=== PATIENT | male | born 1950 | race Caucasian/White ===

== ENCOUNTER 2018-08-19 10:15 | Observation (INO) | payer MEDICARE, OTHER ==
[~2018-08-19] VITALS: Ht 167.6 cm; Wt 78.0 kg
[2018-08-19] MEDS ORDERED: SODIUM CHLORIDE 0.9% 1000ML 1,000 ML IV STA (10:20)
[2018-08-19] MEDS ORDERED: PANTOPRAZOLE 40 MG 10ML VIAL IV STA (10:20)
[2018-08-19] MEDS ORDERED: ONDANSETRON HCL INJ 2 MG/ML VIAL IV STA (10:20)
[2018-08-19] MEDS ORDERED: ASPIRIN 81 MG CHEW TAB PO STA (10:20)
[2018-08-19] MEDS ORDERED: NITROGLYCERIN 0.4 MG SUBL SL ONE (10:30)
[2018-08-19] MEDS ORDERED: ASPIRIN 81 MG CHEW TAB PO ONE ×2 (10:30→12:00)
[2018-08-19 10:38] LABS: BASOPHILS % 0.4 % (0.0-1.0); EOSINOPHILS # (AUTO) 0.3 (0.0-0.4); EOSINOPHILS % 2.7 % (0.0-6.0); HEMATOCRIT 52.2 % (38.2-49.6); HEMOGLOBIN 18.3 g/dL (14.0-18.0); LYMPHOCYTES # (AUTO) 1.4 (1.0-3.2); LYMPHOCYTES % 14.8 % (18.0-39.1); MEAN CORPUSCULAR HEMOGLOBIN 31.2 pg (28-32); MEAN CORPUSCULAR HGB CONC 35.1 g/dL (31-35); MEAN CORPUSCULAR VOLUME 89.1 fL (81-99); MONOCYTES # (AUTO) 0.5 (0.2-0.8); MONOCYTES % 5.4 % (4.4-11.3); NEUTROPHILS # (AUTO) 7.2 (2.1-6.9); NEUTROPHILS % 76.1 % (38.7-80.0); PLATELET COUNT 125 x10e3/uL (140-360); RED BLOOD COUNT 5.86 x10e6/uL (4.3-5.7); RED CELL DISTRIBUTION WIDTH 12.9 % (11.7-14.4)
[2018-08-19 10:44] LABS: INR 0.94; PROTHROMBIN TIME 13.4 seconds (11.9-14.5)
[2018-08-19 10:45] LABS: PARTIAL THROMBOPLASTIN TIME 28.1 seconds (23.8-35.5)
[2018-08-19 10:53] LABS: ALANINE AMINOTRANSFERASE 30 IU/L (0-55); ALBUMIN 4.3 g/dL (3.5-5.0); ALBUMIN/GLOBULIN RATIO 1.2 (0.8-2.0); ALKALINE PHOSPHATASE 128 IU/L (40-150); ANION GAP 15.2 mmol/L (8-16); BLOOD UREA NITROGEN 22 mg/dL (7-26); BUN/CREATININE RATIO 24 (6-25); CALCIUM 9.9 mg/dL (8.4-10.2); CARBON DIOXIDE 24 mmol/L (22-29); CHLORIDE 102 mmol/L (98-107); CREATINE KINASE 72 IU/L (30-200); EST GLOMERULAR FILTRATION RATE > 60 ML/MIN (60-); GLUCOSE 198 mg/dL (74-118); LIPASE 22 U/L (8-78); MAGNESIUM 2.2 MG/DL (1.3-2.1); POTASSIUM 4.2 mmol/L (3.5-5.1); SODIUM 137 mmol/L (136-145)
--- NOTE | 2018-08-19 10:59 | Diagnostic Imaging Report ---
PROCEDURE: A single AP view of the chest. COMPARISON: None. INDICATIONS: LEFT CHEST PAIN, RADIATES TO SCAPULA FINDINGS: Lines/tubes: None. Lungs: Moderate lung volumes. Patchy opacity is present at the left lung base. There is no evidence of pneumonia or pulmonary edema. Pleura: There is no pleural effusion or pneumothorax. Apparent linear lucency below the rib at the right lung base is likely artifactual rather than a trace pneumothorax. Heart and mediastinum: The cardiomediastinal silhouette is unremarkable. Bones: No acute bony abnormality. IMPRESSION: No acute radiographic abnormality. Apparent linear lucency at the right lung base is likely artifactual rather than a trace pneumothorax. Mild patchy left basilar opacity, likely atelectasis. Dictated by: SARAH GRAMAJO M.D. on 08/19/2018 at 11:07 Electronically approved by: SARAH GRAMAJO M.D. on 08/19/2018 at 11:07
[2018-08-19 11:07] LABS: CLARITY,URINE SL CLOUDY (CLEAR); COLOR,URINE YELLOW (YELLOW); KETONES,URINE NEGATIVE (NEGATIVE); LEUKOCYTE ESTERASE ,URINE NEGATIVE (NEGATIVE); NITRITE,URINE NEGATIVE (NEGATIVE); PROTEIN,URINE DIPSTICK TRACE (NEGATIVE)
[2018-08-19 11:08] LABS: BILIRUBIN,URINE NEGATIVE (NEGATIVE); URINE UROBILINOGEN 0.2 mg/dL (0.2 - 1)
[2018-08-19 11:27] LABS: EPITHELIAL CELLS,URINE RARE /LPF; RBC,URINE 0-5 /HPF (0-5)
[2018-08-19] MEDS ORDERED: ATORVASTATIN CA20 MG PO (11:49)
[2018-08-19] MEDS ORDERED: GABAPENTIN300 MG PO (11:49)
[2018-08-19] MEDS ORDERED: LOSARTAN POTASS25 MG PO (11:49)
[2018-08-19] MEDS ORDERED: invokana PO (11:49)
[2018-08-19] MEDS ORDERED: CYCLOBENZAPRINE10 MG PO (11:49)
[2018-08-19] MEDS ORDERED: TAMSULOSIN HCL0.4 MG PO (11:49)
[2018-08-19] MEDS ORDERED: SODIUM CHLORIDE FLUSH 10 ML SYR INJ PRN (12:00)
[2018-08-19] MEDS ORDERED: DEXTROSE 50% SYRINGE 50 ML IV PRN (12:00)
[2018-08-19] MEDS ORDERED: ONDANSETRON HCL INJ 2 MG/ML VIAL IV PRN (12:00)
[2018-08-19] MEDS ORDERED: MORPHINE SULFATE 2 MG/ML SYR IV PRN (12:00)
[2018-08-19] MEDS ORDERED: NITROGLYCERIN 0.4 MG SUBL SL PRN (12:00)
[2018-08-19] MEDS: NITROGLYCERIN 2% OINT 1 GM PKT TOP SCH ×2 (12:30→16:55)
[2018-08-19 12:50] VITALS: BP 118/72
[2018-08-19 14:31] VITALS: BP 118/72
[2018-08-19] MEDS: INSULIN REGULAR, HUMAN 100 UNIT/1 ML 3ML VIAL SQ SCH ×2 (17:13→21:00)
[2018-08-19 17:16] VITALS: BP 109/70
[2018-08-19] MEDS ORDERED: INFLUENZA VIRUS VAC SPLIT INJ 0.5 ML SYR IM SCH (18:00)
[2018-08-19 19:56] LABS: CREATINE KINASE 62 IU/L (30-200)
[2018-08-19 20:00] VITALS: BP_SYST 100; BP_SYST 103; BP_DIAS 57; BP_DIAS 59
[2018-08-19 20:05] VITALS: BP 100/57
[2018-08-19] MEDS: ATORVASTATIN 20 MG TAB PO SCH (21:12)
[2018-08-19 21:48] VITALS: BP 108/61
[2018-08-20] VITALS (8 sets, daily range): BP systolic 122–145; BP diastolic 73–87
[2018-08-20] MEDS: NITROGLYCERIN 2% OINT 1 GM PKT TOP SCH ×4 (00:32→17:37)
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
[2018-08-20 06:17] LABS: CREATINE KINASE MB 0.5 ng/mL (0-5.0)
[2018-08-20] MEDS: INSULIN REGULAR, HUMAN 100 UNIT/1 ML 3ML VIAL SQ SCH ×4 (07:30→20:55)
[2018-08-20] MEDS: PANTOPRAZOLE SOD 40 MG TABEC PO SCH (07:30)
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
[2018-08-20] MEDS: ASPIRIN 325 MG TAB EC PO SCH (08:52)
[2018-08-20] MEDS: LOSARTAN POTASSIUM 25 MG TAB PO SCH (08:53)
[2018-08-20] MEDS: TAMSULOSIN HCL 0.4 MG CAP PO SCH (08:53)
--- NOTE | 2018-08-20 16:44 | Progress Note ---
DATE: August 20, 2018 CARDIOLOGY PROGRESS NOTE SUBJECTIVE: Patient reports he had chest pain overnight. He denies any shortness of breath. OBJECTIVE VITAL SIGNS: Temperature 97.5 degrees, pulse 86, respiratory rate 20, blood pressure 122/80, oxygen saturation 94% on 2 liters nasal cannula. GENERAL: Obese gentleman, in no acute distress. Awake and alert. LUNGS: Clear to auscultation bilaterally. No wheezes or crackles. CARDIOVASCULAR: Normal rate, regular rhythm. No murmur. Normal S1 and S2. ABDOMEN: Soft, nontender. EXTREMITIES: No edema. LABS: Troponin 0.003, cholesterol 98. LDL 37, HDL 48, triglyceride 67. TELEMETRY: Normal sinus rhythm. IMPRESSION 1. Chest pain. 2. Moderate coronary artery disease. 3. Diabetes mellitus. 4. Hypertension. 5. Hyperlipidemia. 6. History of hepatitis C virus, status post treatment. RECOMMENDATIONS: No evidence of myocardial infarction, on serial cardiac biomarkers. Nuclear stress test was without evidence of ischemia. Given initial back pain, we will check CTA of the chest to rule out dissection. Continue home cardiac medications otherwise. Further recommendations pending CT result. Thank you for this consult. We will continue to follow. Job#: [id number] TOSIN ALFORD
--- NOTE | 2018-08-20 18:03 | Cardiology Report ---
DATE OF STUDY: August 20, 2018 PROCEDURE: Rest-stress single-isotope SPECT imaging with exercise stress and gated SPECT imaging. INDICATIONS: Chest pain. PROCEDURE: Patient performed treadmill exercise using a Brandon protocol, exercising for 6 minutes 6 seconds to stage 2 and completing an estimated work load of 7 metabolic equivalents (METS). The test was terminated due to fatigue. The rest heart rate was 101 beats per minute at rest and increased to 133 beats per minute at peak exercise, which was 89% of the maximum predicted heart rate. The rest blood pressure was 112/74 and increased to 167/75 mmHg, which is a normal response. The patient did not develop any symptoms during the procedure. The resting electrocardiogram demonstrated normal sinus rhythm. There were no ST-segment changes consistent with myocardial ischemia. Next, myocardial perfusion imaging was performed at rest following the injection of 11 mCi of tetrofosmin. At peak exercise, the patient was injected with 33 mCi of tetrofosmin, and exercise was continued for 1 minute. Gated poststress tomographic imaging was performed. FINDINGS: The overall quality of the study is fair. Left ventricular cavity was noted to be normal size on the rest and stress studies. SPECT images demonstrated homogeneous tracer distribution throughout the myocardium. Gated SPECT imaging reveals normal myocardial thickening and wall motion. The left ventricular ejection fraction was calculated to be greater than 70%. IMPRESSION: Myocardial perfusion imaging is normal. Overall left ventricular systolic function was normal without regional wall motion abnormalities. Job#: [id number]
[2018-08-20] MEDS ORDERED: IOPAMIDOL 370 MG/ML 200 ML INFUS..BTL INJ ONE (18:23)
[2018-08-20] MEDS ORDERED: SODIUM CHLORIDE 0.9% 100 ML 100 ML ONE (18:23)
--- NOTE | 2018-08-20 18:59 | Diagnostic Imaging Report ---
EXAM: CTA of the Thoracic Aorta WITHOUT and WITH Contrast INDICATION: Chest pain. Left-sided pain that radiates to the back. Stabbing pain between the shoulder blades. \S\rule out dissection COMPARISON: None. TECHNIQUE: Multi-detector CT technology was employed. CTA Gated axial imaging of the chest was performed before and after the administration of IV contrast. IV CONTRAST: 100 mL Isovue 370 ORAL CONTRAST: None COMPLICATIONS: None RADIATION DOSE: Total DLP: 881.47 mGy*cm Estimated effective dose: (DLP x 0.015 x size factor) mSv CTDIvol has been reviewed. It is below the limits set by the Radiation Protocol Committee (RPC). For optimization of anatomic evaluation, multiplanar reconstruction, maximum intensity projections, and advanced 3-D off-line postprocessing were performed on a dedicated stand-alone workstation under the direct supervision of the interpreting physician. FINDINGS: Potential study limitations: None. LINES/ TUBES: None. VASCULAR WITH ADVANCED 3-D OFF-LINE POSTPROCESSING: Aortic valve morphology is trileaflet and contains mild calcifications. The thoracic aorta is normal in course, caliber, and contour. There is no acute aortic pathology, such as dissection, intramural hematoma, or contained rupture. Aortic plaques: Mild. The arch vessel branching pattern is conventional. All of the arch branch vessels appear widely patent in their proximal portions. Global Technical Writer dimensions of the thoracic aorta are as follows: 2.1 cm at the aortic annulus 3.5 cm at the sinuses of Valsalva (the sinotubular junction is preserved) 3.2 cm at the mid ascending aorta 3.3 cm at the distal ascending aorta 2.6 cm at the mid transverse arch 2.6 cm at the proximal descending thoracic aorta 2.6 cm at the diaphragmatic hiatus. LUNGS AND AIRWAYS: Calcified granuloma in the right lower lobe. Scarring with atelectasis in the right lower lobe. Left lower lobe atelectasis and mild scarring. Airways are patent. PLEURA: The pleural spaces are clear.. HEART AND MEDIASTINUM: The thyroid gland is normal. No mediastinal, hilar or axillary lymphadenopathy. 0.8 cm prevascular lymph node. 1.2 cm precarinal lymph node (series 2 image 25). Punctate calcification in the subcarinal lymph node. Tiny calcifications in the right hilum, likely tiny calcified right hilar lymph nodes. The main pulmonary artery is normal in size. The cardiac chambers demonstrate normal atrioventricular and ventriculoarterial concordance, and systemic and pulmonary venous return. The cardiac chambers are normal in size. The coronary arteries have normal origins and courses. There are moderate to severe coronary calcifications identified, though this study was not optimized for coronary artery evaluation. There is no pericardial effusion. LIMITED ABDOMEN: The limited images of the upper abdomen reveal no abnormalities of the visualized organs. 1.3 cm cyst in the superior pole of left kidney. BONES: Unremarkable. IMPRESSION: 1. Unremarkable thoracic aorta. There is no acute aortic pathology. 2. Old granulomatous disease. Signed by: Dr. Roe Goodman M.D. on 08/20/2018 6:56 PM
[2018-08-20] MEDS ORDERED: ACETAMINOPHEN 325 MG TAB PO PRN (20:30)
[2018-08-20] MEDS: ATORVASTATIN 20 MG TAB PO SCH (20:55)
[2018-08-21] VITALS: BP_SYST 126; BP_SYST 127; BP_DIAS 67; BP_DIAS 75
[2018-08-21 07:00] VITALS: BP_SYST 125; BP_SYST 128; BP_SYST 131; BP_DIAS 81; BP_DIAS 84; BP_DIAS 86
[2018-08-21] MEDS: INSULIN REGULAR, HUMAN 100 UNIT/1 ML 3ML VIAL SQ SCH (07:30)
[2018-08-21] MEDS: PANTOPRAZOLE SOD 40 MG TABEC PO SCH (07:30)
[2018-08-21] MEDS: TAMSULOSIN HCL 0.4 MG CAP PO SCH (09:00)
[2018-08-21] MEDS: ASPIRIN 325 MG TAB EC PO SCH (09:00)
[2018-08-21] MEDS: LOSARTAN POTASSIUM 25 MG TAB PO SCH (09:01)
--- OUTSIDE RECORDS SUMMARY | 2018-09-01 09:45 | XMS REPORT ---
Author Author [facility] Address Unknown Phone Unavailable Care Team Providers Care Lime Puller Name Role Phone Brittny MIRELES Unavailable Unavailable Problems This patient has no known problems. Allergies, Adverse Reactions, Alerts This patient has no known allergies or adverse reactions. Medications This patient has no known medications. Results Test Description Test Time Test Comments Text Results Atomic Results Result Comments CHEST SINGLE (PORTABLE) 2018-08-19 11:07:00 [facility] [address] [id number] Patient Name: MICHELLE BLACKWOOD MR #: [id number] : 1950 Age/Sex: 68/M Req #: [id number] Adm Physician: Ordered by: CHRIS BLACKWOOD HUMAN RESOURCES OPERATIONS MANAGER Report #: [id number] Location: ER Room/Bed: Procedure: [id number] DX/CHEST SINGLE (PORTABLE) Exam Date: 08/19/18 Exam Time: 1040 REPORT STATUS: Signed PROCEDURE: A single AP view of the chest. COMPARISON: None. INDICATIONS: LEFT CHEST PAIN, RADIATES TO SCAPULA FINDINGS: Lines/tubes: None. Lungs: Moderate lung volumes. Patchy opacity is present at the left lung base. There is no evidence of pneumonia or pulmonary edema. Pleura: There is no pleural effusion or pneumothorax. Apparent linear lucency below the rib at the right lung base is likely artifactual rather than a trace pneumothorax. Heart and mediastinum: The cardiomediastinal silhouette is unremarkable. Bones: No acute bony abnormality. IMPRESSION: No acute radiographic abnormality. Apparent linear lucency at the right lung base is likely artifactual rather than a trace pneumothorax. Mild patchy left basilar opacity, likely atelectasis. Dictated by: SARAH GRAMAJO M.D. on 08/19/2018 at 11:07 Electronically approved by: SARAH GRAMAJO M.D. on 08/19/2018 at 11:07 Dictated By: SARAH GRAMAJO MD 110 Transcribed By: JAIDEN on 08/19/181106 COPY TO: CHRIS BLACKWOOD NP
[2018-10-06] MEDS ORDERED: ONGLYZA5 MG PO (10:08)
[2018-10-06] MEDS ORDERED: MULTI-VITAMIN1 EACH PO (10:09)
[2018-10-06] MEDS ORDERED: METFORMIN HCL500 MG PO (10:09)
[2018-10-06] MEDS ORDERED: ASPIR 8181 MG PO (10:09)
--- NOTE | 2018-10-15 02:11 | Discharge Summary ---
CHIEF COMPLAINT: Chest pain. FINAL DIAGNOSES 1. Chest pain. 2. Diabetes. 3. Hypertension. PROCEDURES: Stress test. DISPOSITION: Home. A 68-year-old male, history of multiple medical problems, presents to the ER of the facility with complaint of chest pain. He states that it began the night before admission while he was eating dinner and left-sided chest pain radiating to the left shoulder blade, continuous, progressively getting worse, went to bed, woke up with the same pain on the left side of the chest, presented to the ER, with no shortness of breath, no nausea, vomiting or diarrhea, no relation to exertion. Underwent evaluation in the ER. Admitted to facility for evaluation of complaint of chest pain, rule out ischemic heart disease, history diabetes hypertension, hyperlipidemia. With admission, patient will be undergoing a cardiology review. Monitor cardiac enzymes. With the complaint of chest pain, the patient was being reviewed by cardiology through Dr. Freedman and following her review, her impression was chest pain and moderate coronary artery disease, diabetes mellitus, hypertension, hyperlipidemia, history of hep C, status post treatment. Will continue to monitor cardiac enzymes to rule out IA. Will be obtaining a treadmill nuclear stress test. Can be discharged with a stress test that is negative. Will be proceeding with catheterizations if the stress test is positive. The patient was being managed on the med/surg floor, was initially n.p.o., was resting comfortably, was on aspirin 325 daily. Continuing with his insulin coverage. Daily medications were being continued as well. Morphine was being managed for pain control. The patient was also being given a nitroglycerin paste patch to the chest wall q.6 h, was also receiving nitroglycerin 0.4 mg sublingual q.5 minutes x3 for the chest pain. Laboratory studies were showing stable electrolytes. Kidney functions BUN 22, creatinine 0.90, glucose 198. CBC was showing hemoglobin of 18, white cell count 9000. Was remaining asymptomatic. Vital signs were remaining stable. Responding to medications. The stress test was uneventful. Patient was cleared for discharge and was released on 08/21/2018 in good condition. EKG showed normal sinus rhythm. Cannot rule out anterior infarct age undetermined. Echocardiogram shows an ejection fraction between 65% and 70%. No evidence of pericardial effusion. Cardiac enzymes were negative. Was discharged. Prior to discharge, the patient did receive a flu vaccine. Patient will continue on his diabetic diet. No equipments or supplies were necessary, drains or Turner was needed. Activity level was directed by me as well as by Dr. Freedman. Patient will be following back up with me in my office within 3 to 5 days. Following up with Dr. Freedman's office in 1 to 2 weeks. Will be on 1. Atorvastatin calcium 20 mg at bedtime. 2. Cyclobenzaprine 10 mg 3 times a day. 3. Gabapentin 300 mg daily. 4. Invokana 300 mg daily. 5. Losartan potassium 50 mg daily. 6. Tamsulosin 0.4 mg daily. If the patient develops any similar symptoms prior to his followup schedule, he may return back to the emergency room or he may contact me at my office. Job#: [id number] CQ
== END 2018-08-21 10:33 | disposition home or self-care (01) ==
LOC: ER 10:15 → INTOOBSV 11:58 → ERHOLD 11:58 → MED/SURG 12:39
PROVIDERS: ADMIT Internal Medicine; ATTEND Internal Medicine
DX: R07.89 Other chest pain (principal); I10 Essential (primary) hypertension; E11.9 Type 2 diabetes mellitus without complications; E78.5 Hyperlipidemia, unspecified; I25.10 Atherosclerotic heart disease of native coronary artery without angina pectoris; G89.29 Other chronic pain; Z86.19 Personal history of other infectious and parasitic diseases
CPT/HCPCS: 36415 ×3; 71045; 71275; 78452; 80053; 80061; 81001; 82550 ×2; 82553 ×2; 82948 ×3; 83690; 83735; 83880; 84484 ×2; 85025; 85610; 85730; 87086; 93005; 93017; 93306; 99284; A9502; G0378 ×3; J2270; J2405; J7030; Q9967; S0164

== ENCOUNTER → 2018-10-12 | Day surgery (SDC) | payer OTHER ==
[2018-10-05 15:34] LABS: BASOPHILS % 0.4 % (0.0-1.0); EOSINOPHILS # (AUTO) 0.2 (0.0-0.4); EOSINOPHILS % 2.5 % (0.0-6.0); HEMATOCRIT 50.8 % (38.2-49.6); HEMOGLOBIN 17.3 g/dL (14.0-18.0); LYMPHOCYTES # (AUTO) 1.8 (1.0-3.2); MEAN CORPUSCULAR HEMOGLOBIN 31.9 pg (28-32); MEAN CORPUSCULAR HGB CONC 34.1 g/dL (31-35); MEAN CORPUSCULAR VOLUME 93.6 fL (81-99); MONOCYTES # (AUTO) 0.5 (0.2-0.8); MONOCYTES % 6.2 % (4.4-11.3); NEUTROPHILS # (AUTO) 5.1 (2.1-6.9); NEUTROPHILS % 66.6 % (38.7-80.0); PLATELET COUNT 127 x10e3/uL (140-360); RED BLOOD COUNT 5.43 x10e6/uL (4.3-5.7); RED CELL DISTRIBUTION WIDTH 13.1 % (11.7-14.4)
[2018-10-05 15:58] LABS: INR 0.95; PARTIAL THROMBOPLASTIN TIME 26.6 seconds (23.8-35.5); PROTHROMBIN TIME 13.5 seconds (11.9-14.5)
[2018-10-05 16:01] LABS: ALANINE AMINOTRANSFERASE 23 IU/L (0-55); ALBUMIN 4.3 g/dL (3.5-5.0); ALBUMIN/GLOBULIN RATIO 1.2 (0.8-2.0); ALKALINE PHOSPHATASE 95 IU/L (40-150); ANION GAP 19.7 mmol/L (8-16); BLOOD UREA NITROGEN 30 mg/dL (7-26); BUN/CREATININE RATIO 28 (6-25); CALCIUM 10.5 mg/dL (8.4-10.2); CARBON DIOXIDE 27 mmol/L (22-29); CHLORIDE 107 mmol/L (98-107); CREATININE, SERUM 1.06 mg/dL (0.72-1.25); EST GLOMERULAR FILTRATION RATE > 60 ML/MIN (60-); GLUCOSE 127 mg/dL (74-118); POTASSIUM 4.7 mmol/L (3.5-5.1); SODIUM 149 mmol/L (136-145)
[~2018-10-12] MED LIST: ASPIR 8181 MG PO; ATORVASTATIN CA20 MG PO; CYCLOBENZAPRINE10 MG PO; FENTANYL CITRATE/PF 100MCG/2 ML INJ ONE; GABAPENTIN300 MG PO; LOSARTAN POTASS25 MG PO; METFORMIN HCL500 MG PO; MIDAZOLAM HCL 2 MG/2 ML VIAL ONE; MULTI-VITAMIN1 EACH PO; ONGLYZA5 MG PO; PROPOFOL IV EMULSION 10 MG/ML 50 ML VIAL ONE; TAMSULOSIN HCL0.4 MG PO; invokana PO
[2018-10-12 15:45] VITALS: BP 114/74
--- NOTE | 2018-10-12 16:05 | Operative Report ---
DATE OF PROCEDURE: October 12, 2018 REFERRING PHYSICIAN: Dr. Tano Smith. PROCEDURES PERFORMED: 1. Esophagogastroduodenoscopy with biopsies. 2. Colonoscopy with polypectomy. INDICATIONS FOR ESOPHAGOGASTRODUODENOSCOPY: Dyspepsia. INDICATIONS FOR COLONOSCOPY: Surveillance colonoscopy, personal history of colon polyps. MEDICATION: Patient was done under MAC. Please see anesthesiologist's note. PROCEDURE: With patient in the left lateral decubitus position, the flexible fiberoptic Olympus gastroscope was introduced into the esophagus under direct visualization without any difficulty. There was some patchy erythema noted in the distal esophagus. The scope was then advanced with ease into the stomach, and the mucosa overlying the antrum and the body revealed some patchy erythema and mild to moderate edema, and biopsies were obtained and sent to stain for H. pylori. Also, some nodules were noted in the antrum, and biopsies were obtained. The pylorus was intubated with ease, and the scope was advanced all the way to the 2nd portion of the duodenum. The scope was then withdrawn slowly. Mucosa overlying the proximal 2nd portion appeared to be within normal limits. Approximately 3 to 4 ulcers were noted in the duodenal bulb and only 1 with stigmata of recent hemorrhage. The scope was then withdrawn back into the stomach and retroflexed, and mucosa overlying the fundus and the cardia appeared to be within normal limits. The scope was then straightened out. It was subsequently withdrawn. Patient tolerated procedure well. IMPRESSION: 1. Distal esophagitis, mild. 2. Gastritis, biopsied. Biopsies sent to stain for H. pylori. 3. Gastric nodules, antrum, biopsies obtained. 4. Duodenal ulcers, bulb, with stigmata of recent hemorrhage. PLAN: Follow up histology. Initiate Protonix 40 mg 1 p.o. q.a.m. a.c. Patient was then turned around and after adequate lubrication of the anal canal, a flexible fiberoptic Olympus colonoscope was inserted into the rectum with ease and advanced all the way to the cecum. One polyp was hot biopsied from the cecum. The ascending, transverse and descending grossly appeared to be within normal limits. One polyp was hot biopsied from the sigmoid colon, and 1 polyp was hot biopsied from the rectum. The scope was then retroflexed into the distal rectum and small internal hemorrhoids were noted, none of which was actively bleeding. The scope was then straightened out. It was subsequently withdrawn. Patient tolerated procedure well. IMPRESSION: 1. Cecal polyp hot biopsied. 2. Sigmoid colon polyp hot biopsied. 3. Rectal polyp hot biopsied. 4. Internal hemorrhoids, none actively bleeding. PLAN: Follow up histology. Initiate high-fiber low-fat diet. Initiate high-fiber supplement. Patient might benefit from a followup colonoscopy in 3 to 5 years. Job#: [id number] EV cc:TANO SMITH MD
== END | disposition home or self-care (01) ==
LOC: OR 10:47
PROVIDERS: ATTEND Internal Medicine Gastroenterology
DX: K29.70 Gastritis, unspecified, without bleeding (principal); K63.5 Polyp of colon; K62.1 Rectal polyp; K20.9 Esophagitis, unspecified; K31.89 Other diseases of stomach and duodenum; K26.9 Duodenal ulcer, unspecified as acute or chronic, without hemorrhage or perforation; K64.8 Other hemorrhoids; K59.00 Constipation, unspecified; K74.60 Unspecified cirrhosis of liver; I10 Essential (primary) hypertension; E78.5 Hyperlipidemia, unspecified; E11.9 Type 2 diabetes mellitus without complications; F17.210 Nicotine dependence, cigarettes, uncomplicated; Z01.810 Encounter for preprocedural cardiovascular examination; Z01.812 Encounter for preprocedural laboratory examination; Z79.82 Long term (current) use of aspirin; Z79.84 Long term (current) use of oral hypoglycemic drugs; Z86.19 Personal history of other infectious and parasitic diseases
CPT/HCPCS: 36415 ×2; 43239; 45384; 80053; 82310; 82948; 85025; 85610; 85730; 93005; J2250; 45378

== ENCOUNTER 2018-10-26 18:51 | Emergency (ER) | payer OTHER ==
[~2018-10-26] VITALS: Ht 167.6 cm; Wt 78.0 kg
[~2018-10-26 18:51] MED LIST changes: -FENTANYL CITRATE/PF 100MCG/2 ML INJ ONE; -MIDAZOLAM HCL 2 MG/2 ML VIAL ONE; -PROPOFOL IV EMULSION 10 MG/ML 50 ML VIAL ONE
[2018-10-26 19:29] LABS: BASOPHILS # (AUTO) 0.1 (0.0-0.1); BASOPHILS % 0.5 % (0.0-1.0); EOSINOPHILS # (AUTO) 0.3 (0.0-0.4); HEMATOCRIT 47.7 % (38.2-49.6); HEMOGLOBIN 16.6 g/dL (14.0-18.0); LYMPHOCYTES # (AUTO) 2.4 (1.0-3.2); LYMPHOCYTES % 25.9 % (18.0-39.1); MEAN CORPUSCULAR HEMOGLOBIN 31.6 pg (28-32); MEAN CORPUSCULAR HGB CONC 34.8 g/dL (31-35); MEAN CORPUSCULAR VOLUME 90.9 fL (81-99); MONOCYTES # (AUTO) 0.5 (0.2-0.8); MONOCYTES % 5.3 % (4.4-11.3); NEUTROPHILS # (AUTO) 6.1 (2.1-6.9); NEUTROPHILS % 64.9 % (38.7-80.0); PLATELET COUNT 145 x10e3/uL (140-360); RED BLOOD COUNT 5.25 x10e6/uL (4.3-5.7); RED CELL DISTRIBUTION WIDTH 13.1 % (11.7-14.4)
[2018-10-26 19:52] LABS: ALANINE AMINOTRANSFERASE 23 IU/L (0-55); ALBUMIN/GLOBULIN RATIO 1.3 (0.8-2.0); ALKALINE PHOSPHATASE 125 IU/L (40-150); ANION GAP 14.5 mmol/L (8-16); BLOOD UREA NITROGEN 23 mg/dL (7-26); BUN/CREATININE RATIO 22 (6-25); CALCIUM 9.5 mg/dL (8.4-10.2); CARBON DIOXIDE 23 mmol/L (22-29); CHLORIDE 102 mmol/L (98-107); CREATININE, SERUM 1.06 mg/dL (0.72-1.25); EST GLOMERULAR FILTRATION RATE > 60 ML/MIN (60-); GLUCOSE 154 mg/dL (74-118); POTASSIUM 3.5 mmol/L (3.5-5.1); SODIUM 136 mmol/L (136-145)
[2018-10-26 20:25] LABS: INR 0.95; PROTHROMBIN TIME 13.5 seconds (11.9-14.5)
[2018-10-26 20:26] LABS: PARTIAL THROMBOPLASTIN TIME 27.8 seconds (23.8-35.5)
== END 2018-10-26 20:53 | disposition home or self-care (01) ==
LOC: ER 18:51
DX: K62.5 Hemorrhage of anus and rectum (principal); I10 Essential (primary) hypertension; E11.9 Type 2 diabetes mellitus without complications; I25.10 Atherosclerotic heart disease of native coronary artery without angina pectoris; E78.5 Hyperlipidemia, unspecified; B19.20 Unspecified viral hepatitis C without hepatic coma; G89.29 Other chronic pain
CPT/HCPCS: 36415; 80053; 85025; 85610; 85730; 99283

== ENCOUNTER → 2019-07-30 | Outpatient (CLI) | payer OTHER ==
--- NOTE | 2019-07-30 10:35 | Diagnostic Imaging Report ---
Right upper quadrant abdominal ultrasound Clinical History: Cirrhosis Discussion: Sonographic evaluation of the right upper quadrant of the abdomen is performed. The liver has normal size and measures 15.0 cm in length. The liver demonstrates lobulated contour, without focal mass. There is no intra or extrahepatic biliary dilatation. The common bile duct measures 2 mm. The gallbladder has normal appearance, without wall thickening, stones, or pericholecystic fluid. The main portal vein diameter is normal, measuring 11 mm. The pancreatic head, body, and proximal tail demonstrate no abnormality. There is no ascites. The right kidney measures 11.1 cm in length and is normal in size. There is no renal mass, hydronephrosis, or shadowing renal calculus. Segments of the inferior vena cava and aorta visualized demonstrate no abnormality. Impression: 1. Lobulated liver contour most compatible with cirrhosis. Signed by: Dr. Scott Salazar MD on 07/30/2019 10:32 AM
== END ==
LOC: US 09:27
PROVIDERS: ATTEND Internal Medicine Gastroenterology
DX: K74.60 Unspecified cirrhosis of liver (principal)
CPT/HCPCS: 76705

== ENCOUNTER 2022-09-23 10:08 | Inpatient (IN) | payer OTHER ==
[~2022-09-23] VITALS: Ht 167.6 cm; Wt 78.0 kg
[2022-09-23] MEDS ORDERED: SODIUM CHLORIDE 0.9% 1000ML 1,000 ML IV STA (10:31)
[2022-09-23 11:08] LABS: BASOPHILS # (AUTO) 0.1 (0.0-0.1); BASOPHILS % 0.8 % (0.0-1.0); EOSINOPHILS # (AUTO) 0.1 (0.0-0.4); EOSINOPHILS % 1.5 % (0.0-6.0); HEMATOCRIT 51.6 % (38.2-49.6); HEMOGLOBIN 17.2 g/dL (14.0-18.0); LYMPHOCYTES # (AUTO) 1.2 (1.0-3.2); LYMPHOCYTES % 17.9 % (18.0-39.1); MEAN CORPUSCULAR HEMOGLOBIN 31.8 pg (28-32); MEAN CORPUSCULAR HGB CONC 33.3 g/dL (31-35); MEAN CORPUSCULAR VOLUME 95.4 fL (81-99); MONOCYTES # (AUTO) 0.3 (0.2-0.8); NEUTROPHILS # (AUTO) 4.9 (2.1-6.9); NEUTROPHILS % 74.5 % (38.7-80.0); PLATELET COUNT 143 x10e3/uL (140-360); RED BLOOD COUNT 5.41 x10e6/uL (4.3-5.7); RED CELL DISTRIBUTION WIDTH 12.5 % (11.7-14.4)
[2022-09-23 11:13] LABS: CLARITY,URINE CLEAR (CLEAR); COLOR,URINE YELLOW (YELLOW); KETONES,URINE NEGATIVE (NEGATIVE); LEUKOCYTE ESTERASE ,URINE NEGATIVE (NEGATIVE); NITRITE,URINE NEGATIVE (NEGATIVE); PROTEIN,URINE DIPSTICK NEGATIVE (NEGATIVE); URINE UROBILINOGEN 0.2 mg/dL (0.2 - 1)
[2022-09-23 11:16] LABS: INR 1.01; PROTHROMBIN TIME 14.2 seconds (11.9-14.5)
[2022-09-23 11:17] LABS: PARTIAL THROMBOPLASTIN TIME 28.1 seconds (23.8-35.5)
[2022-09-23 11:25] LABS: ALANINE AMINOTRANSFERASE 20 IU/L (0-55); ALBUMIN 4.2 g/dL (3.5-5.0); ALBUMIN/GLOBULIN RATIO 1.4 (0.8-2.0); ALKALINE PHOSPHATASE 113 IU/L (40-150); BLOOD UREA NITROGEN 17 mg/dL (7-26); BUN/CREATININE RATIO 18 (6-25); CALCIUM 9.2 mg/dL (8.4-10.2); CARBON DIOXIDE 24 mmol/L (22-29); CHLORIDE 105 mmol/L (98-107); CREATINE KINASE 93 IU/L (30-200); CREATININE, SERUM 0.92 mg/dL (0.72-1.25); GLUCOSE 126 mg/dL (74-118); MAGNESIUM 2.2 MG/DL (1.3-2.1); SODIUM 140 mmol/L (136-145)
[2022-09-23 11:36] LABS: BACTERIA,URINE FEW /HPF; EPITHELIAL CELLS,URINE FEW /LPF; RBC,URINE 0-5 /HPF (0-5); RENAL EPITHELIAL CELLS,URINE FEW; WBC,URINE (MAN) 0-5 /HPF (0-5)
[2022-09-23] MEDS ORDERED: ONDANSETRON HCL INJ 2MG/ML 2ML 2 MG/ML VIAL IV PRN (12:45)
[2022-09-23 19:19] LABS: CREATINE KINASE MB 0.9 ng/mL (0-5.0)
[2022-09-23] MEDS ORDERED: POLYETHYLENE GLYCOL 3350 17 GM PACK PO PRN (19:45)
[2022-09-23] MEDS ORDERED: ACETAMINOPHEN 325 MG TAB PO PRN (19:45)
[2022-09-23] MEDS ORDERED: HYDRALAZINE HCL 20 MG/ML VIAL IV PRN (19:45)
[2022-09-23] MEDS ORDERED: JARDIANCE25 MG PO (20:06)
[2022-09-23 20:14] VITALS: BP 125/73
[2022-09-23 20:31] VITALS: BP 125/73
[2022-09-23] MEDS ORDERED: ADVIL200 MG PO (20:52)
[2022-09-23] MEDS ORDERED: MECLIZINE HCL25 MG PO (20:52)
[2022-09-23] MEDS ORDERED: ATORVASTATIN 20 MG TAB PO SCH (21:00)
[2022-09-23] MEDS ORDERED: METHYLPREDNISOLONE SOD SUCC 40 MG/ML VIAL 1ML IV ONE (21:03)
[2022-09-23 22:29] VITALS: BP 123/78
[2022-09-23 22:30] VITALS: BP 135/78
[2022-09-23 22:31] VITALS: BP 111/64
[2022-09-24] MEDS ORDERED: FAMOTIDINE 20 MG TAB PO SCH (07:30)
[2022-09-24] MEDS ORDERED: ASPIRIN 81 MG ENTERIC COATED PO SCH (09:00)
[2022-09-24] MEDS ORDERED: LOSARTAN POTASSIUM 25 MG TAB PO SCH (09:00)
[2022-09-24] MEDS ORDERED: MULTIVITAMINS/MINERALS TAB PO SCH (09:00)
[2022-09-24] MEDS ORDERED: METFORMIN HCL 500 MG TAB PO SCH (09:00)
[2022-09-24] MEDS ORDERED: TAMSULOSIN HCL 0.4 MG CAP PO SCH (09:00)
[2022-09-24] MEDS ORDERED: NON-FORMULARY MEDICATION (Empagliflozin (Jardiance) 25 MG) PO SCH (09:00)
[2022-09-24] MEDS ORDERED: DOCUSATE SODIUM 100 MG CAP PO SCH (09:00)
[2022-09-24] MEDS ORDERED: ASPIRIN 81 MG CHEW TAB PO SCH (09:00)
[2022-09-24] MEDS ORDERED: SAXAGLIPTIN HCL PO SCH (09:00)
== END 2022-09-23 22:42 | disposition home or self-care (01) | DRG 149 ==
LOC: ER 10:16 → ERHOLD 12:44 → MED/SURG 18:07
PROVIDERS: ADMIT Internal Medicine; ATTEND Internal Medicine
DX: H81.10 Benign paroxysmal vertigo, unspecified ear (principal); I25.10 Atherosclerotic heart disease of native coronary artery without angina pectoris; E11.65 Type 2 diabetes mellitus with hyperglycemia; E78.5 Hyperlipidemia, unspecified; E11.69 Type 2 diabetes mellitus with other specified complication; N40.0 Benign prostatic hyperplasia without lower urinary tract symptoms; B18.2 Chronic viral hepatitis C; E11.42 Type 2 diabetes mellitus with diabetic polyneuropathy; Z79.4 Long term (current) use of insulin; F17.210 Nicotine dependence, cigarettes, uncomplicated; Z20.822 Contact with and (suspected) exposure to COVID-19
CPT/HCPCS: 0223U; 36415; 70450; 70544; 70547; 70551; 71045; 80053; 81001; 82550; 82553; 82948; 83735; 83880; 84484; 85025; 85610; 85730; 93005; 93306; 99284; J2920; J7030